=== PATIENT | female | born 1975 | race African-American/Black ===

== ENCOUNTER 2017-05-30 12:20 | Emergency (ER) | payer MEDICAID ==
[~2017-05-30] VITALS: Ht 162.6 cm; Wt 79.8 kg
[2017-05-30] MEDS ORDERED: KETOROLAC TROMETH 60MG/2ML VIAL IM ONE (13:00)
[2017-05-30 13:11] LABS: Urine Bilirubin Negative (Negative); Urine Color Yellow (Yellow); Urine Glucose Normal (Normal); Urine Ketone Negative (Negative); Urine Nitrite Negative (Negative); Urine RBC 1 /hpf (0 - 4); Urine Squamous Epithelial Cell FEW /hpf (<5); Urine Urobilinogen Normal (Negative); Urine pH 7.5 (5.0-8.0)
[2017-05-30 13:13] LABS: Urine Blood 1+ /uL (Negative)
[2017-05-30 13:19] VITALS: BP 162/120
[2017-05-30 13:21] LABS: Basophils # (auto) 0 uL; Basophils % (auto) 0.7 % (0.0-2.0); CONDITION Y; DEFINITIVE SEE PRINTOUT; Eosinophils # (auto) 0.2 uL; Hematocrit 28.7 % (36.0-46.0); Lymphocytes % (auto) 42.4 % (10.0-50.0); Mean Corpuscular Hemoglobin 21.8 pg (28.0-32.0); Mean Corpuscular Hgb Conc. 31.5 g/dL (32.0-36.0); Mean Corpuscular Volume 69.1 fL (80.0-100.0); Mean Platelet Volume 9.6 fL (7.4-10.4); Monocytes # (auto) 0.2 uL; Monocytes % (auto) 5.2 % (0.0-12.0); Neutrophils # (auto) 2.2 uL; Neutrophils % (auto) 47.7 % (37.0-80.0); Platelet Count (auto) 291 10^3/uL (140-450); White Blood Cell 4.6 10^3/uL (4.4-10.8)
[2017-05-30 13:32] LABS: Red Cell Distribution Width 20.1 % (11.6-16.0)
[2017-05-30 13:33] LABS: Albumin 3.5 g/dL (3.4-5.0); BUN/Creatinine Ratio 18.9; Potassium 3.6 mmol/L (3.5-5.1)
[2017-05-30 13:36] LABS: Bilirubin, Total 0.3 mg/dL (0.2-1.0); Total Protein 7.2 g/dL (6.4-8.2)
[2017-05-30 14:13] LABS: Microcytosis Marked; Platelet Estimate Adequate
[2017-05-30 14:14] LABS: Ovalocytes FEW
[2017-05-30 14:15] LABS: Hypochromia Moderate
[2017-05-30 14:16] LABS: Anisocytosis Moderate
== END 2017-05-30 14:34 | disposition home or self-care (01) ==
LOC: ER 12:20
DX: S76.911A Strain of unspecified muscles, fascia and tendons at thigh level, right thigh, initial encounter (principal); R10.9 Unspecified abdominal pain; Z88.0 Allergy status to penicillin; X58.XXXA Exposure to other specified factors, initial encounter; Y93.89 Activity, other specified; Y99.8 Other external cause status; Y92.89 Other specified places as the place of occurrence of the external cause
CPT/HCPCS: 36415; 80053; 81001; 81025; 85025; 96372; 99284; J1885

== ENCOUNTER 2018-08-12 11:14 | Emergency (ER) | payer MEDICAID ==
[~2018-08-12] VITALS: Ht 162.6 cm; Wt 81.6 kg
[2018-08-12 12:17] LABS: Urine Bacteria FEW /hpf (None Seen); Urine Blood 2+ /uL (Negative); Urine Mucus MODERATE (None Seen); Urine Specific Gravity 1.027 (1.001-1.035); Urine WBC <1 /hpf (0 - 5)
[2018-08-12 12:28] LABS: Basophils # (auto) 0 uL; Hematocrit 27.8 % (36.0-46.0)
[2018-08-12 12:31] LABS: Basophils % (auto) 0.6 % (0.0-2.0); Eosinophils # (auto) 0.2 uL; Eosinophils % (auto) 3.2 % (0.0-7.0); Hemoglobin 8.4 g/dL (12.2-16.2); Lymphocytes # (auto) 1.4 uL; Lymphocytes % (auto) 28.9 % (10.0-50.0); Mean Corpuscular Hgb Conc. 30.4 g/dL (32.0-36.0); Mean Corpuscular Volume 65.9 fL (80.0-100.0); Monocytes # (auto) 0.4 uL; Monocytes % (auto) 8.2 % (0.0-12.0); Neutrophils # (auto) 2.8 uL; Neutrophils % (auto) 59.1 % (37.0-80.0); Platelet Count (auto) 289 10^3/uL (140-450); Red Blood Cells 4.21 10^6/uL (4.0-5.20); White Blood Cell 4.8 10^3/uL (4.4-10.8)
[2018-08-12 12:43] LABS: Red Cell Distribution Width 20.2 % (11.8-14.3)
[2018-08-12 12:47] LABS: Albumin 3.4 g/dL (3.4-5.0); BUN/Creatinine Ratio 16.9; Calcium 8.2 mg/dL (8.5-10.1); Potassium 3.3 mmol/L (3.5-5.1); Uric Acid 4.8 mg/dL (2.6-6.0)
[2018-08-12 12:54] LABS: Bilirubin, Total 0.3 mg/dL (0.2-1.0); Total Protein 7.4 g/dL (6.4-8.2)
[2018-08-12 14:43] VITALS: BP 148/88
== END 2018-08-12 14:45 | disposition home or self-care (01) ==
LOC: ER 11:14
DX: M79.605 Pain in left leg (principal); M79.604 Pain in right leg; D64.9 Anemia, unspecified; Z88.0 Allergy status to penicillin
CPT/HCPCS: 36415; 80053; 81001; 84550; 85025

== ENCOUNTER 2023-06-11 19:39 | Inpatient (IN) | payer MEDICAID ==
[~2023-06-11] VITALS: Ht 162.6 cm; Wt 88.9 kg
[2023-06-11] MEDS ORDERED: ASPirin 81 mg TAB PO ONE (19:45)
[2023-06-11 20:12] LABS: Basophils # (auto) 0 10 ^3/uL (0-0.2); Basophils % (auto) 0.8 % (0.0-2.0); Eosinophils # (auto) 0.2 10 ^3/uL (0-0.8); Eosinophils % (auto) 3.6 % (0.0-7.0); Hematocrit 25.1 % (36.0-46.0); Hemoglobin 7.4 g/dL (12.2-16.2); Lymphocytes # (auto) 1.9 10 ^3/uL (0.4-5.4); Lymphocytes % (auto) 33.4 % (10.0-50.0); Mean Corpuscular Hemoglobin 17.7 pg (28.0-32.0); Mean Corpuscular Hgb Conc. 29.7 g/dL (32.0-36.0); Mean Corpuscular Volume 59.7 fL (80.0-100.0); Monocytes # (auto) 0.5 10 ^3/uL (0-1.3); Monocytes % (auto) 8.4 % (0.0-12.0); Neutrophils # (auto) 3.1 10 ^3/uL (1.6-8.6); Neutrophils % (auto) 53.8 % (37.0-80.0); Nucleated Red Blood Cells % 0.2 %; White Blood Cell 5.7 10^3/uL (4.4-10.8)
[2023-06-11 20:13] LABS: Red Cell Distribution Width 21.5 % (11.8-14.3)
[2023-06-11 20:27] LABS: INR 1.04 (0.9-1.15); Partial Thromboplastin Time 24.5 SEC (24.5-34.5); Prothrombin Time 10.9 sec (9.3-11.8)
[2023-06-11 20:40] LABS: Albumin 3.8 g/dL (3.4-5.0); Calcium 8.6 mg/dL (8.5-10.1); Magnesium 2.2 mg/dL (1.6-2.6); Potassium 3.4 mmol/L (3.5-5.1)
[2023-06-11 20:45] LABS: BUN/Creatinine Ratio 14.7 (10.0-20.0); Bilirubin, Total 0.2 mg/dL (0.2-1.0); Total Protein 7.6 g/dL (6.4-8.2)
[2023-06-11 21:02] LABS: Amphetamine Screen, Urine NEGATIVE (NEGATIVE); Barbiturate Scree,Urine NEGATIVE (NEGATIVE); Benzodiazephine Screen, Urine NEGATIVE (NEGATIVE); Cannabinoid Screen, Urine NEGATIVE (NEGATIVE); Cocaine Screen, Urine NEGATIVE (NEGATIVE); Opiate Scree,Urine NEGATIVE (NEGATIVE); Phencyclidine Screen, Urine NEGATIVE (NEGATIVE)
[2023-06-11 21:27] LABS: Urine Bacteria NONE SEEN /hpf (None Seen); Urine Blood 3+ /uL (Negative); Urine Clarity HAZY (Clear); Urine Color Red (Yellow); Urine Protein, UAD 2+ (Negative); Urine Specific Gravity 1.019 (1.001-1.035); Urine Urobilinogen Normal (Negative); Urine WBC 57 /hpf (0 - 5)
[2023-06-11 21:30] LABS: Ovalocytes FEW
[2023-06-11 21:32] LABS: Anisocytosis Moderate; Hypochromia Marked; Platelet Estimate Adequate
[2023-06-11 22:00] VITALS: PULSE 80; RESP 18; O2SAT 100
[2023-06-11 23:52] LABS: Rapid Influenza A Negative (Negative); Rapid Influenza B Negative (Negative)
[2023-06-11 23:53] LABS: COVID19 ANTIGEN SOFIA FIA NEGATIVE (NEGATIVE)
[2023-06-12] MEDS ORDERED: NITROGLYCERIN 0.4 MG SL TAB SL PRN ×2 (01:15→18:45)
[2023-06-12] MEDS ORDERED: POTASSIUM CHL 20 Meq TABLET PO ONE (01:15)
[2023-06-12] MEDS ORDERED: ONDANSETRON HCL 4 MG/2 ML VIAL IV PRN (01:15)
[2023-06-12] MEDS: MORPHINE SULFATE INJ 2 MG/ml SYRG IV PRN ×3 (02:47→15:09)
[2023-06-12 07:40] VITALS: RESP 15; O2SAT 100
[2023-06-12] MEDS: PANTOPRAZOLE 40 MG TAB PO SCH (10:21)
[2023-06-12] MEDS: ASPirin 81 mg TAB PO SCH (10:21)
[2023-06-12] MEDS ORDERED: cefTRIAXone 1GM/50ML D5W 50 ML IV ONE (11:30)
[2023-06-12] MEDS ORDERED: ATORVASTATIN 20 MG TAB PO ONE (14:15)
[2023-06-12 14:53] LABS: Basophils # (auto) 0 10 ^3/uL (0-0.2); Eosinophils # (auto) 0.1 10 ^3/uL (0-0.8); Hemoglobin 7.1 g/dL (12.2-16.2); Mean Corpuscular Hemoglobin 17.6 pg (28.0-32.0); Neutrophils # (auto) 3.8 10 ^3/uL (1.6-8.6)
[2023-06-12 14:56] LABS: Basophils % (auto) 0.5 % (0.0-2.0); Hematocrit 24.3 % (36.0-46.0); Lymphocytes # (auto) 2.3 10 ^3/uL (0.4-5.4); Lymphocytes % (auto) 33.9 % (10.0-50.0); Mean Corpuscular Hgb Conc. 29.3 g/dL (32.0-36.0); Mean Corpuscular Volume 60.1 fL (80.0-100.0); Monocytes # (auto) 0.5 10 ^3/uL (0-1.3); Monocytes % (auto) 6.9 % (0.0-12.0); Neutrophils % (auto) 56.7 % (37.0-80.0); Nucleated Red Blood Cells % 0.2 %; Red Blood Cells 4.05 10^6/uL (4.0-5.20); White Blood Cell 6.7 10^3/uL (4.4-10.8)
[2023-06-12 14:57] LABS: Red Cell Distribution Width 21.7 % (11.8-14.3)
[2023-06-12 16:31] LABS: Anisocytosis Slight; Hypochromia Marked; Ovalocytes FEW; Platelet Estimate Adequate
[2023-06-12] MEDS ORDERED: LIDOCAINE 2%HCL (LOCAL ANESTH.) INJ 20ML MDV ONE (17:17)
[2023-06-12] MEDS ORDERED: IOHEXOL 350 MG/ML 100ML IJ ONE (17:18)
[2023-06-12] MEDS ORDERED: fentaNYL CITRATE 100 MCG/2 ML VL ONE (17:43)
[2023-06-12] MEDS ORDERED: MIDAZOLAM HCL 2MG/2ML 2ml VIAL (1mg/ml) ONE (17:43)
[2023-06-12] MEDS ORDERED: VANCOMYCIN 1GM/250ML 0 ML IV ONE (17:46)
[2023-06-12] MEDS ORDERED: HEPARIN SODIUM (PORCINE) 5000 UNITS/ML 1ML VIAL ONE (18:19)
[2023-06-12] MEDS ORDERED: CLOPIDOGREL 300 MG TAB ONE (18:20)
[2023-06-12] MEDS ORDERED: FUROSEMIDE 20 MG/2 ML VIAL ONE (18:35)
[2023-06-12 18:45] VITALS: BP 151/81; PULSE 70; RESP 15; TEMP 98.1; O2SAT 95
[2023-06-12] MEDS ORDERED: MORPHINE SULFATE INJ 2 MG/ml SYRG IV PRN (18:45)
[2023-06-12] MEDS ORDERED: CLOPIDOGREL 300 MG TAB PO ONE (18:45)
[2023-06-12 19:00] VITALS: BP 152/76; PULSE 65; RESP 11; TEMP 98.1; O2SAT 99
[2023-06-12 19:15] VITALS: BP 147/81; PULSE 71; RESP 16; O2SAT 98
[2023-06-12 19:31] VITALS: BP 134/89; PULSE 82; RESP 11; O2SAT 99
[2023-06-12 20:07] LABS: Cholesterol 132 mg/dL (< 200); HDL Cholesterol 35 mg/dL (40-59); LDL Cholesterol 85 mg/dL (< 100); Triglycerides 110 mg/dL (< 150)
[2023-06-12] MEDS ORDERED: MORPHINE SULFATE INJ 2 MG/ml SYRG IV ONE (22:15)
[2023-06-12] MEDS ORDERED: HYDROcodone-ACET 5/325MG TAB PO PRN (22:15)
[2023-06-12] MEDS: ATORVASTATIN 20 MG TAB PO SCH (22:28)
[2023-06-12] MEDS: METOPROLOL TARTRATE 25 MG TAB PO SCH (22:30)
[2023-06-12 22:36] VITALS: BP 142/74; PULSE 71; RESP 17; TEMP 98.2; O2SAT 98
[2023-06-13] VITALS (14 sets, daily range): BP systolic 118–146; BP diastolic 62–94; PULSE 59–76; RESP 14–20; TEMP 97.9–99.2; O2SAT 97–99
[2023-06-13 06:43] LABS: Basophils # (auto) 0 10 ^3/uL (0-0.2); Basophils % (auto) 0.3 % (0.0-2.0); Eosinophils # (auto) 0.1 10 ^3/uL (0-0.8); Hemoglobin 7.9 g/dL (12.2-16.2); Lymphocytes # (auto) 1.7 10 ^3/uL (0.4-5.4); Mean Corpuscular Volume 61.8 fL (80.0-100.0); Monocytes # (auto) 0.6 10 ^3/uL (0-1.3)
[2023-06-13 06:45] LABS: Eosinophils % (auto) 1.9 % (0.0-7.0); Lymphocytes % (auto) 23.7 % (10.0-50.0); Mean Corpuscular Hemoglobin 18.8 pg (28.0-32.0); Mean Corpuscular Hgb Conc. 30.4 g/dL (32.0-36.0); Monocytes % (auto) 9.1 % (0.0-12.0); Neutrophils # (auto) 4.7 10 ^3/uL (1.6-8.6); Nucleated Red Blood Cells % 0.1 %; White Blood Cell 7.2 10^3/uL (4.4-10.8)
[2023-06-13 06:48] LABS: Red Cell Distribution Width 23.1 % (11.8-14.3)
[2023-06-13 06:57] LABS: Albumin 3.4 g/dL (3.4-5.0); Potassium 3.6 mmol/L (3.5-5.1)
[2023-06-13 07:01] LABS: BUN/Creatinine Ratio 17.1 (10.0-20.0); Bilirubin, Total 0.5 mg/dL (0.2-1.0); Calcium 8.7 mg/dL (8.5-10.1); Total Protein 7.2 g/dL (6.4-8.2)
[2023-06-13 07:57] LABS: % Iron Saturation 4.5 % (15-50)
[2023-06-13] MEDS ORDERED: DEXTROSE (50%) 50ML SYRG IV PRN (08:15)
[2023-06-13] MEDS: cefTRIAXone 1GM/50ML D5W 50 ML IV SCH (09:44)
[2023-06-13] MEDS: ASPirin 81 mg TAB PO SCH (09:44)
[2023-06-13] MEDS: METOPROLOL TARTRATE 25 MG TAB PO SCH ×2 (09:45→22:38)
[2023-06-13] MEDS: PANTOPRAZOLE 40 MG TAB PO SCH (09:47)
[2023-06-13] MEDS: CLOPIDOGREL BISULFATE 75 MG TAB PO SCH (09:52)
[2023-06-13] MEDS: ACCU-CHEK COMFORT CURVE STRIP VI SCH ×3 (11:30→22:38)
[2023-06-13] MEDS: InsuLIN REG 1unit/0.01ml Soln (100units/ml) SC SCH ×3 (12:24→22:42)
[2023-06-13] MEDS: ATORVASTATIN 20 MG TAB PO SCH (22:36)
[2023-06-14 04:53] VITALS: BP 121/86; PULSE 69; RESP 16; TEMP 98.6; O2SAT 100
[2023-06-14 06:20] LABS: Basophils # (auto) 0 10 ^3/uL (0-0.2); Basophils % (auto) 0.4 % (0.0-2.0); Eosinophils # (auto) 0.1 10 ^3/uL (0-0.8); Lymphocytes # (auto) 1.6 10 ^3/uL (0.4-5.4); Neutrophils # (auto) 5.2 10 ^3/uL (1.6-8.6); White Blood Cell 7.6 10^3/uL (4.4-10.8)
[2023-06-14 06:22] LABS: Eosinophils % (auto) 1.3 % (0.0-7.0); Hematocrit 29.6 % (36.0-46.0); Hemoglobin 9.1 g/dL (12.2-16.2); Lymphocytes % (auto) 21.2 % (10.0-50.0); Mean Corpuscular Hemoglobin 19.4 pg (28.0-32.0); Mean Corpuscular Hgb Conc. 30.9 g/dL (32.0-36.0); Monocytes # (auto) 0.6 10 ^3/uL (0-1.3); Monocytes % (auto) 8.2 % (0.0-12.0); Neutrophils % (auto) 68.9 % (37.0-80.0); Nucleated Red Blood Cells % 0.2 %
[2023-06-14 06:24] LABS: Red Cell Distribution Width 23.5 % (11.8-14.3)
[2023-06-14 06:39] LABS: Potassium 3.6 mmol/L (3.5-5.1)
[2023-06-14 06:43] LABS: Albumin 3.5 g/dL (3.4-5.0); Calcium 8.7 mg/dL (8.5-10.1)
[2023-06-14 06:45] LABS: Bilirubin, Total 0.5 mg/dL (0.2-1.0); Total Protein 7.2 g/dL (6.4-8.2)
[2023-06-14 06:56] LABS: Anisocytosis Slight; Hypochromia Moderate; Platelet Estimate Adequate; Target Cell FEW
[2023-06-14] MEDS: ACCU-CHEK COMFORT CURVE STRIP VI SCH ×3 (07:00→17:00)
[2023-06-14 08:00] VITALS: PULSE 60; RESP 16; O2SAT 99
[2023-06-14] MEDS: InsuLIN REG 1unit/0.01ml Soln (100units/ml) SC SCH ×3 (08:27→17:00)
[2023-06-14 09:00] VITALS: BP 134/75; PULSE 71; RESP 20; TEMP 98.4; O2SAT 100
[2023-06-14] MEDS ORDERED: FERROUS SULFATE 325mg EC TAB PO ONE (09:30)
[2023-06-14] MEDS ORDERED: ASPirin 81 mg TAB PO SCH (10:00)
[2023-06-14] MEDS: CLOPIDOGREL BISULFATE 75 MG TAB PO SCH (11:36)
[2023-06-14] MEDS: cefTRIAXone 1GM/50ML D5W 50 ML IV SCH (11:36)
[2023-06-14] MEDS: PANTOPRAZOLE 40 MG TAB PO SCH (11:36)
[2023-06-14] MEDS: METOPROLOL TARTRATE 25 MG TAB PO SCH (11:37)
[2023-06-14 13:00] VITALS: BP 139/87; PULSE 61; RESP 19; TEMP 98.6; O2SAT 97
[2023-06-14] MEDS ORDERED: BLOO1KIT XX (13:46)
[2023-06-14] MEDS ORDERED: MET25T PO (13:46)
[2023-06-14] MEDS ORDERED: CLOP75TA70 PO (13:46)
[2023-06-14] MEDS ORDERED: FER325T PO (13:46)
[2023-06-14] MEDS ORDERED: EMPA1TAB PO (13:46)
[2023-06-14] MEDS ORDERED: PANT40T PO (13:46)
[2023-06-14] MEDS ORDERED: ASPI-325 PO (13:46)
[2023-06-14] MEDS ORDERED: ATO40T PO (13:46)
[2023-06-14] MEDS ORDERED: BLOO1KIT60 XX (13:46)
[2023-06-14] MEDS ORDERED: CEPH250C PO (16:08)
[2023-06-14 17:00] VITALS: BP 143/78; PULSE 70; RESP 19; TEMP 98.4; O2SAT 99
[2023-06-14] MEDS ORDERED: FERROUS SULFATE 325mg EC TAB PO SCH (18:00)
== END 2023-06-14 18:25 | disposition home or self-care (01) | DRG 174 ==
LOC: ER 19:39 → TELE 06-12 01:07 → TELE-EAST 06-12 19:55
PROVIDERS: ADMIT Internal Medicine; ATTEND Internal Medicine
PROC: 027034Z Dilation of Coronary Artery, One Artery with Drug-eluting Intraluminal Device, Percutaneous Approach (ICD-10-PCS; principal; 2023-06-12)
PROC: 4A023N7 Measurement of Cardiac Sampling and Pressure, Left Heart, Percutaneous Approach (ICD-10-PCS; 2023-06-12)
PROC: B211YZZ Fluoroscopy of Multiple Coronary Arteries using Other Contrast (ICD-10-PCS; 2023-06-12)
PROC: B215YZZ Fluoroscopy of Left Heart using Other Contrast (ICD-10-PCS; 2023-06-12)
PROC: 4A033BC Measurement of Arterial Pressure, Coronary, Percutaneous Approach (ICD-10-PCS; 2023-06-12)
PROC: B41FYZZ Fluoroscopy of Right Lower Extremity Arteries using Other Contrast (ICD-10-PCS; 2023-06-12)
PROC: B240ZZ3 Ultrasonography of Single Coronary Artery, Intravascular (ICD-10-PCS; 2023-06-12)
PROC: 30233N1 Transfusion of Nonautologous Red Blood Cells into Peripheral Vein, Percutaneous Approach (ICD-10-PCS; 2023-06-13)
DX: I21.4 Non-ST elevation (NSTEMI) myocardial infarction (principal); I50.31 Acute diastolic (congestive) heart failure; I11.0 Hypertensive heart disease with heart failure; D62 Acute posthemorrhagic anemia; D25.9 Leiomyoma of uterus, unspecified; E11.9 Type 2 diabetes mellitus without complications; F10.10 Alcohol abuse, uncomplicated; N39.0 Urinary tract infection, site not specified; E66.9 Obesity, unspecified; J45.909 Unspecified asthma, uncomplicated; N92.0 Excessive and frequent menstruation with regular cycle; I25.10 Atherosclerotic heart disease of native coronary artery without angina pectoris; G89.29 Other chronic pain; Z87.891 Personal history of nicotine dependence; Z68.33 Body mass index [BMI] 33.0-33.9, adult; Z88.0 Allergy status to penicillin; F32.A Depression, unspecified; N92.1 Excessive and frequent menstruation with irregular cycle
CPT/HCPCS: 36415; 71045; 75710; 76856; 80053; 80061; 80307; 81001; 82962; 83036; 83540; 83550; 83735; 83880; 84443; 84484; 84702; 85025; 85379; 85610; 85730; 86850; 86900; 86901; 86920; 87426; 87804; 92941; 92978; 93005; 93306; 93458; 93571; 99152; 99153; G0378; J0696; J1815; J2250; J2405

== ENCOUNTER 2023-09-16 21:01 | Emergency (ER) | payer MEDICAID ==
[~2023-09-16] VITALS: Ht 162.6 cm; Wt 81.0 kg
[~2023-09-16 21:01] MED LIST: ASPI-325 PO; ATO40T PO; BLOO1KIT XX; BLOO1KIT60 XX; CEPH250C PO; CLOP75TA70 PO; EMPA1TAB PO; FER325T PO; MET25T PO; PANT40T PO
[2023-09-16 21:39] LABS: Eosinophils # (auto) 0.1 10 ^3/uL (0-0.8); Eosinophils % (auto) 1.3 % (0.0-7.0); Lymphocytes # (auto) 2.2 10 ^3/uL (0.4-5.4); Mean Corpuscular Hgb Conc. 28.5 g/dL (32.0-36.0); Monocytes # (auto) 0.5 10 ^3/uL (0-1.3); Monocytes % (auto) 7.3 % (0.0-12.0); Nucleated Red Blood Cells % 0.1 %
[2023-09-16 21:41] LABS: Basophils # (auto) 0.1 10 ^3/uL (0-0.2); Basophils % (auto) 0.8 % (0.0-2.0); Lymphocytes % (auto) 29.6 % (10.0-50.0); Mean Corpuscular Hemoglobin 17.4 pg (28.0-32.0); Neutrophils # (auto) 4.4 10 ^3/uL (1.6-8.6); Red Blood Cells 3.61 10^6/uL (4.0-5.20); White Blood Cell 7.3 10^3/uL (4.4-10.8)
[2023-09-16 21:53] LABS: Alkaline Phosphatase 56 U/L (46-116); Anion Gap 6 (5-15); Aspartate Aminotransferase < 8 U/L (13-40); BUN/Creatinine Ratio 9.9 (10.0-20.0); Blood Urea Nitrogen 7 mg/dL (9-23); Calcium 8.4 mg/dL (8.7-10.4); Carbon Dioxide 25 mmol/L (20-30); Chloride 106 mmol/L (98-107); Glucose 157 mg/dL (74-106); Lipase 42 U/L (12-53); Potassium 3.3 mmol/L (3.5-5.1); Sodium 137 mmol/L (136-145)
[2023-09-16 21:54] LABS: Bilirubin, Total 0.3 mg/dL (0.2-1.0); Red Cell Distribution Width 21.5 % (11.8-14.3)
[2023-09-16 21:56] LABS: Alanine Aminotransferase < 9 U/L (7-40)
[2023-09-16 22:08] LABS: Hemoglobin 6.3 g/dL (12.2-16.2)
[2023-09-16 22:37] LABS: Anisocytosis Moderate; Hypochromia Marked; Large Platelets FEW; Platelet Estimate Adequate
[2023-09-16 22:45] LABS: Urine Bacteria NONE SEEN /hpf (None Seen); Urine Blood TRACE /uL (Negative); Urine Clarity Clear (Clear); Urine Color Colorless (Yellow); Urine Protein, UAD Negative (Negative); Urine Specific Gravity 1.036 (1.001-1.035); Urine Urobilinogen Normal (Negative); Urine WBC <1 /hpf (0 - 5); Urine pH 5.5 (5.0-8.0)
[2023-09-16 23:30] VITALS: PULSE 74; RESP 20; O2SAT 100
[2023-09-16] MEDS ORDERED: ONDANSETRON HCL 4 MG/2 ML VIAL IV ONE (23:30)
[2023-09-16] MEDS ORDERED: MORPHINE SULFATE 4 MG/ML SYR/VIAL IV ONE (23:30)
[2023-09-17 00:41] VITALS: BP 124/64; PULSE 74; RESP 20; TEMP 98.4
[2023-09-17 02:47] VITALS: BP 135/80; PULSE 76; RESP 16; TEMP 97.9
[2023-09-17 03:07] VITALS: BP 135/80; PULSE 69; RESP 18; TEMP 98.7
[2023-09-17 03:23] VITALS: BP 130/77; PULSE 66; RESP 18; TEMP 97.8
[2023-09-17 05:17] VITALS: BP 139/74; PULSE 64; RESP 20; TEMP 98.2
[2023-09-17 06:05] LABS: Basophils # (auto) 0 10 ^3/uL (0-0.2); Mean Corpuscular Hgb Conc. 30.2 g/dL (32.0-36.0)
[2023-09-17 06:08] LABS: Basophils % (auto) 0.5 % (0.0-2.0); Eosinophils # (auto) 0.1 10 ^3/uL (0-0.8); Eosinophils % (auto) 2.2 % (0.0-7.0); Hematocrit 26.1 % (36.0-46.0); Hemoglobin 7.9 g/dL (12.2-16.2); Lymphocytes % (auto) 31.1 % (10.0-50.0); Mean Corpuscular Hemoglobin 19.8 pg (28.0-32.0); Mean Corpuscular Volume 65.7 fL (80.0-100.0); Monocytes # (auto) 0.5 10 ^3/uL (0-1.3); Monocytes % (auto) 8.4 % (0.0-12.0); Neutrophils # (auto) 3.7 10 ^3/uL (1.6-8.6); Neutrophils % (auto) 57.8 % (37.0-80.0); Red Blood Cells 3.97 10^6/uL (4.0-5.20); White Blood Cell 6.4 10^3/uL (4.4-10.8)
[2023-09-17 07:33] LABS: Red Cell Distribution Width 25.8 % (11.8-14.3)
[2023-09-17 08:00] VITALS: BP 135/72; PULSE 76; RESP 16; O2SAT 99
== END 2023-09-17 08:50 | disposition home or self-care (01) ==
LOC: ER 21:01
DX: D62 Acute posthemorrhagic anemia (principal); N93.9 Abnormal uterine and vaginal bleeding, unspecified; Z79.82 Long term (current) use of aspirin; Z79.01 Long term (current) use of anticoagulants; Z79.899 Other long term (current) drug therapy; Z88.0 Allergy status to penicillin
CPT/HCPCS: 36415; 36430; 80053; 81001; 83690; 85025; 86850; 86900; 86901; 86920; 96374; 96375; 99285; J2270; J2405; P9016

== ENCOUNTER 2023-10-10 12:38 | Emergency (ER) | payer MEDICAID ==
[~2023-10-10] VITALS: Ht 167.6 cm; Wt 78.6 kg
[2023-10-10] MEDS ORDERED: MORPHINE SULFATE INJ 2 MG/ml SYRG IM ONE (15:15)
[2023-10-10] MEDS ORDERED: ONDANSETRON ODT 4 MG TAB PO ONE (15:15)
[2023-10-10 15:20] LABS: Basophils # (auto) 0.1 10 ^3/uL (0-0.2); Eosinophils # (auto) 0.2 10 ^3/uL (0-0.8); Hematocrit 30.1 % (36.0-46.0); Hemoglobin 8.8 g/dL (12.2-16.2); Lymphocytes # (auto) 1.6 10 ^3/uL (0.4-5.4); Monocytes # (auto) 0.6 10 ^3/uL (0-1.3); Nucleated Red Blood Cells % 0.1 %
[2023-10-10 15:22] LABS: Basophils % (auto) 1.4 % (0.0-2.0); Lymphocytes % (auto) 20.9 % (10.0-50.0); Mean Corpuscular Hemoglobin 19.5 pg (28.0-32.0); Mean Corpuscular Hgb Conc. 29.2 g/dL (32.0-36.0); Mean Corpuscular Volume 66.8 fL (80.0-100.0); Monocytes % (auto) 7.5 % (0.0-12.0); Neutrophils # (auto) 5.3 10 ^3/uL (1.6-8.6); Neutrophils % (auto) 67.2 % (37.0-80.0); White Blood Cell 7.9 10^3/uL (4.4-10.8)
[2023-10-10 15:28] LABS: Red Cell Distribution Width 27.5 % (11.8-14.3)
[2023-10-10] MEDS ORDERED: FER325T PO (15:47)
[2023-10-10 16:12] LABS: Anisocytosis Slight; Hypochromia Moderate; Platelet Estimate Adequate
[2023-10-10 17:41] VITALS: O2SAT 100
[2023-10-10 17:54] VITALS: BP 142/80; PULSE 89; RESP 19
== END 2023-10-10 17:30 | disposition home or self-care (01) ==
LOC: ER 12:38
DX: N93.8 Other specified abnormal uterine and vaginal bleeding (principal); R10.2 Pelvic and perineal pain; Z88.0 Allergy status to penicillin; Z90.710 Acquired absence of both cervix and uterus
CPT/HCPCS: 36415; 76856; 84702; 85025; 96372; 99285; J2270; Q0162

== ENCOUNTER 2024-06-24 13:53 | Emergency (ER) | payer MEDICAID ==
[~2024-06-24] VITALS: Ht 162.6 cm; Wt 80.7 kg
[~2024-06-24 13:53] MED LIST changes: -ATO40T PO; +ATOR-507 PO
[2024-06-24 15:09] LABS: Eosinophils # (auto) 0.2 10 ^3/uL (0-0.8); Hemoglobin 8.8 g/dL (12.2-16.2); Monocytes # (auto) 0.3 10 ^3/uL (0-1.3); Neutrophils # (auto) 2.4 10 ^3/uL (1.6-8.6)
[2024-06-24 15:11] LABS: Basophils # (auto) 0.1 10 ^3/uL (0-0.2); Basophils % (auto) 1.2 % (0.0-2.0); Eosinophils % (auto) 3.7 % (0.0-7.0); Hematocrit 29.4 % (36.0-46.0); Lymphocytes % (auto) 40.6 % (10.0-50.0); Mean Corpuscular Hemoglobin 20.6 pg (28.0-32.0); Mean Corpuscular Hgb Conc. 29.9 g/dL (32.0-36.0); Mean Corpuscular Volume 68.9 fL (80.0-100.0); Monocytes % (auto) 5.6 % (0.0-12.0); Neutrophils % (auto) 48.9 % (37.0-80.0); Nucleated Red Blood Cells % 0.2 %; Platelet Count (auto) 195 10^3/uL (140-450); Red Blood Cells 4.27 10^6/uL (4.0-5.20); White Blood Cell 4.9 10^3/uL (4.4-10.8)
[2024-06-24 15:16] LABS: Red Cell Distribution Width 31.8 % (11.8-14.3)
[2024-06-24 15:34] LABS: Alanine Aminotransferase 13 U/L (7-40); Albumin 4.1 g/dL (3.2-4.8); Alkaline Phosphatase 48 U/L (46-116); Anion Gap 8 (5-15); Aspartate Aminotransferase 12 U/L (13-40); BUN/Creatinine Ratio 12.5 (10.0-20.0); Blood Urea Nitrogen 9 mg/dL (9-23); Calcium 9.4 mg/dL (8.7-10.4); Carbon Dioxide 25 mmol/L (20-30); Chloride 106 mmol/L (98-107); Glucose 134 mg/dL (74-106); Potassium 3.7 mmol/L (3.5-5.1); Sodium 139 mmol/L (136-145)
[2024-06-24 15:35] LABS: Bilirubin, Total 0.2 mg/dL (0.2-1.0)
[2024-06-24 15:39] LABS: Anisocytosis Marked; Hypochromia Marked; Platelet Estimate Adequate
[2024-06-24 15:41] LABS: Large Platelets FEW
[2024-06-24 16:36] VITALS: BP 141/68; PULSE 76; RESP 16; TEMP 98.5; O2SAT 100
[2024-06-24] MEDS: GABAPENTIN 300 MG CAP PO ONE (16:44)
[2024-06-24] MEDS ORDERED: GABA-1250 PO (16:58)
== END 2024-06-24 18:00 | disposition home or self-care (01) ==
LOC: ER 13:53
DX: G62.9 Polyneuropathy, unspecified (principal); D64.9 Anemia, unspecified; Z88.0 Allergy status to penicillin; Z79.899 Other long term (current) drug therapy
CPT/HCPCS: 36415; 80053; 83036; 84484; 85025

== ENCOUNTER 2024-07-29 21:39 | Emergency (ER) | payer MEDICAID ==
[~2024-07-29] VITALS: Ht 162.6 cm; Wt 81.8 kg
[~2024-07-29 21:39] MED LIST changes: +GABA-1250 PO
[2024-07-29 21:50] VITALS: BP 156/76; PULSE 90; RESP 18; O2SAT 99
[2024-07-29] MEDS ORDERED: GABA-1250 PO (22:10)
== END 2024-07-30 03:57 | disposition home or self-care (01) ==
LOC: ER 21:39
DX: G62.9 Polyneuropathy, unspecified (principal); Z79.02 Long term (current) use of antithrombotics/antiplatelets; Z79.82 Long term (current) use of aspirin; Z79.84 Long term (current) use of oral hypoglycemic drugs; Z79.899 Other long term (current) drug therapy; Z88.0 Allergy status to penicillin

== ENCOUNTER → 2024-10-01 | Emergency (ER) | payer MEDICAID | END | disposition left against medical advice (07) | LOC: ER 19:21 | DX: R10.9 Unspecified abdominal pain (principal); R06.02 Shortness of breath; Z53.21 Procedure and treatment not carried out due to patient leaving prior to being seen by health care provider ==